=== PATIENT | male | born 1940 | race Two or more races ===

== ENCOUNTER 2019-11-18 20:38 | Emergency (ER) | payer OTHER ==
[~2019-11-18] VITALS: Ht 170.2 cm; Wt 68.0 kg
[~2019-11-18 20:38] MED LIST: HYFIBER WI PO; INTEGRA F CAPS1 EACH PO; Neurin-Sl Tablet Sl SL; PERCOCET 5/3251 TAB PO; PYRIDOXINE HCL100 MG PO; RECTICARE30 GM TP
[2019-11-18] MEDS ORDERED: ZETIA10 MG PO (21:00)
[2019-11-18] MEDS ORDERED: EZALLOR SPRINKLE5 MG PO (21:00)
[2019-11-18] MEDS ORDERED: WARFARIN SODIUM2 MG PO (21:00)
[2019-11-18] MEDS ORDERED: FORTAMET500 MG PO (21:01)
[2019-11-18] MEDS ORDERED: QUINAPRIL HCL5 MG PO (21:01)
== END 2019-11-19 00:51 | disposition home or self-care (01) ==
LOC: ER 20:38
DX: R11.11 Vomiting without nausea (principal); E11.9 Type 2 diabetes mellitus without complications; I10 Essential (primary) hypertension

== ENCOUNTER 2021-01-05 12:40 | Emergency (ER) | payer OTHER ==
[~2021-01-05] VITALS: Ht 172.7 cm; Wt 68.9 kg
[~2021-01-05 12:40] MED LIST changes: +EZALLOR SPRINKLE5 MG PO; +FORTAMET500 MG PO; +QUINAPRIL HCL5 MG PO; +WARFARIN SODIUM2 MG PO; +ZETIA10 MG PO
[2021-01-05] MEDS ORDERED: JANTOVEN3 MG PO (13:04)
== END 2021-01-06 11:24 | disposition home or self-care (01) ==
LOC: ER 12:40
DX: R30.0 Dysuria (principal); D12.9 Benign neoplasm of anus and anal canal; K62.5 Hemorrhage of anus and rectum; Z20.822 Contact with and (suspected) exposure to COVID-19; D64.89 Other specified anemias; E11.9 Type 2 diabetes mellitus without complications; I10 Essential (primary) hypertension; R50.9 Fever, unspecified; D68.8 Other specified coagulation defects; R11.10 Vomiting, unspecified; Z95.1 Presence of aortocoronary bypass graft

== ENCOUNTER → 2022-01-23 | Emergency (ER) | payer OTHER ==
[~2022-01-23] VITALS: Ht 172.7 cm; Wt 74.8 kg
[~2022-01-23] MED LIST changes: +CIPRO500 MG PO; +FAMOTIDINE20 MG PO; +FLONASE ALLERG9.9 ML NS; +GLIMEPIRIDE2 M1 PO; +HYDROCHLOROTH12.5 MG PO; +JANTOVEN3 MG PO; +QUINAPRIL HCL10 MG PO; +ROSUVASTATIN CA10 MG PO; +TAMS0.4C PO; +TRADJENTA5 MG PO; +WARFARIN SODIUM3 MG PO
== END | disposition home or self-care (01) ==
LOC: ER 20:16
DX: N39.0 Urinary tract infection, site not specified (principal); Z20.822 Contact with and (suspected) exposure to COVID-19; I11.9 Hypertensive heart disease without heart failure; E11.9 Type 2 diabetes mellitus without complications; Z79.84 Long term (current) use of oral hypoglycemic drugs

== ENCOUNTER 2022-02-20 13:26 | Inpatient (IN) | payer OTHER ==
[~2022-02-20] VITALS: Ht 172.7 cm; Wt 69.4 kg
--- NOTE | 2022-02-20 13:45 | NUR ---
PACIENTE ALERTA Y ORIENTADO X3. REFIERE FIEBRE, DOLOR DE ESPALDA, ESCALOFRIOS, Y CANSANCIO DESDE HACE 3 SANTIAGO.
--- NOTE | 2022-02-20 16:07 | NUR ---
PACIENTE ALERTA Y ORIENTADO POR NIVIA. SE ORIENTA DE TRATAMIENTO LARRY ORDEN MEDICA. REFIERE ENTENDER. SE ADMINISTRA MEDICAMENTO Y SE REALIZAN MUESTRAS CON MEDIDAS ASEPTICAS CORRESPONDIENTES. EN ESPERA DE RESULTADOS PARA RE EVALUACION MEDICA.
[2022-02-22] MEDS ORDERED: METFORMIN HCL1000 M3 (11:35)
[2022-02-22] MEDS ORDERED: FARXIGA5 MG (11:35)
[2022-02-22] MEDS ORDERED: FAMOTIDINE20 MG (11:36)
== END 2022-02-27 14:40 | disposition home or self-care (01) | DRG 690 ==
LOC: ER 13:26 → SEC-K 21:55 → MEDJ 21:55
PROVIDERS: ADMIT Internal Medicine; ATTEND Internal Medicine
PROC: BW21ZZZ Computerized Tomography (CT Scan) of Abdomen and Pelvis (ICD-10-PCS; principal; 2022-02-20)
DX: N39.0 Urinary tract infection, site not specified (principal); N41.0 Acute prostatitis; B96.29 Other Escherichia coli [E. coli] as the cause of diseases classified elsewhere; N40.1 Benign prostatic hyperplasia with lower urinary tract symptoms; I10 Essential (primary) hypertension; E11.9 Type 2 diabetes mellitus without complications; Z20.822 Contact with and (suspected) exposure to COVID-19; Z95.2 Presence of prosthetic heart valve

== ENCOUNTER 2022-06-25 13:44 | Emergency (ER) | payer OTHER ==
[~2022-06-25] VITALS: Ht 172.7 cm; Wt 72.6 kg
[~2022-06-25 13:44] MED LIST changes: +FAMOTIDINE20 MG; +FARXIGA5 MG; +METFORMIN HCL1000 M3
== END 2022-06-25 19:01 | disposition home or self-care (01) ==
LOC: ER 13:44
DX: E11.65 Type 2 diabetes mellitus with hyperglycemia (principal); N18.9 Chronic kidney disease, unspecified

== ENCOUNTER 2022-12-06 15:45 | Emergency (ER) | payer OTHER ==
[~2022-12-06] VITALS: Ht 175.3 cm; Wt 71.7 kg
[2022-12-06] MEDS ORDERED: ACUPRIL (15:57)
== END 2022-12-06 20:45 | disposition home or self-care (01) ==
LOC: ER 15:45
PROVIDERS: General Practice
DX: R51.9 Headache, unspecified (principal); E11.9 Type 2 diabetes mellitus without complications; Z79.84 Long term (current) use of oral hypoglycemic drugs